=== PATIENT | male | born 1955 | race African-American/Black ===

== ENCOUNTER 2019-02-10 18:45 | Inpatient (IN) | payer OTHER ==
[2019-02-10 20:54] VITALS: BMI 28.5
--- NOTE | 2019-02-10 21:07 | HP ---
CIWA Score Nausea/Vomitin-No Nausea/No Vomiting Muscle Tremors: 1-None Visible, but [place] Anxiety: 4-Mod. Anxious/Guarded Agitation: 4-Moderately Restless Paroxysmal Sweats: 3 Orientation: 3-Disoriented Date>2 days Tacttile Disturbances: 2-Mild Itch/Numbness/Burn Auditory Disturbances: 0-None Visual Disturbances: 2-Mild Sensitivity Headache: 0-None Present CIWA-Ar Total Score: 19 - Admission Criteria [facility]ASAS Guidelines: Admission for Medically Managed Detox: Requires at least one of the followin. CIWA greater than 12 2. Seizures within the past 24 hours 3. Delirium tremens within the past 24 hours 4. Hallucinations within the past 24 hours 5. Acute intervention needed for co occurring medical disorder 6. Acute intervention needed for co occurring psychiatric disorder 7. Severe withdrawal that cannot be handled at a lower level of care (continued vomiting, continued diarrhea, abnormal vital signs) requiring intravenous medication and/or fluids 8. Admission ROS [facility] Chief Complaint: C/O WITHDRAWAL SX'S Allergies/Adverse Reactions: Allergies Allergy/AdvReac Type Severity Reaction Status Date / Time No Known Allergies Allergy Verified 02/10/19 20:24 History of Present Illness: 63 Y.O. MALE WITH ALCOHOLISM AND COCAINE DEPENDENCE HERE FOR DETOX. CLIENT WAS REFERRED BY [facility] AFTER BEING BIBA FOR BLACKING OUT IN THE STREET. HE HAS SINCE BEEN MEDICALLY CLEARED AND DC AFTER A FEW HOURS OF OBSERVATION. NEGATIVE HEAD CT NOTED. CLIENT NOW PRESENTS WITH C/O WITHDRAWAL SXS'. 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 REPORTS DAILY USE OF ALCOHOL. REPORTS LONGEST CLEAN TIME 9 MONTHS. DENIES ANY IN THE PAST YEAR. REPORTS HX/O SEIZURES R/T ALCOHOL WITHDRAWAL. LAST BEING 2 YEARS AGO. HISTORY OF BLACKOUTS LAST BEING LESS THAN 24 HOURS AGO. DENIES SI/HI/AVH. HOMELESS, UNEMPLOYED, DENIES LEGALS. Exam Limitations: No Limitations - Ebola screening Have you traveled outside of the country in the last 21 days: No (N) Have you had contact with anyone from an Ebola affected area: No Do you have a fever: No - Review of Systems Constitutional: Chills, Night Sweats, Changes in sleep EENT: reports: Dental Problems (MISSING TEETH) Respiratory: reports: No Symptoms reported Cardiac: reports: No Symptoms Reported GI: reports: Diarrhea, Poor Fluid Intake : reports: No Symptoms Reported Musculoskeletal: reports: No Symptoms Reported Integumentary: reports: No Symptoms Reported Neuro: reports: Seizure, Dizziness, Other (BLACK OUTS) Endocrine: reports: No Symptoms Reported Hematology: reports: No Symptoms Reported Psychiatric: reports: Agitated (IRRITABLE), Anxious, Depressed (DENIES SI) Other Systems: Reviewed and Negative Patient History - Patient Medical History Hx Anemia: No Hx Asthma: No Hx Chronic Obstructive Pulmonary Disease (COPD): No Hx Cancer: No Hx Cardiac Disorders: Yes (2 CARDIAC STENTS/ ON PLAVIX) Hx Congestive Heart Failure: No Hx Hypertension: Yes Hx Hypercholesterolemia: Yes (NOT COMPLAINT WITH SIMVISTATIN) Hx Pacemaker: No HX Cerebrovascular Accident: No Hx Seizures: Yes (ALCOHOL WITHDRAWAL) Hx Dementia: No Hx Diabetes: No Hx Gastrointestinal Disorders: Yes (HX/O BLEEDING ULCERS) Hx Liver Disease: No Hx Genitourinary Disorders: No Hx Sexually Transmitted Disorders: No Hx Renal Disease (ESRD): No Hx Thyroid Disease: No Hx Human Immunodeficiency Virus (HIV): No Hx Hepatitis C: No Hx Depression: Yes Hx Suicide Attempt: Yes (ONE ATTEMPT 10 YEARS AGO BY SLITTING WRIST) Hx Bipolar Disorder: Yes (SEROQUEL) Hx Schizophrenia: No Other Medical History: DENIES - Patient Surgical History Past Surgical History: Yes Hx Cardiac Surgery: Yes (2 STENTS) Hx Abdominal Surgery: Yes (BLEEDING ULCERS) Anesthesia Reaction: No - PPD History Previous Implant?: Yes Documented Results: Negative w/o proof Implanted On Prior [facility] Admission?: No PPD to be Administered?: Yes - Smoking Cessation Smoking history: Current every day smoker Have you smoked in the past 12 months: Yes Aproximately how many cigarettes per day: 10 Cigars Per Day: 0 Hx Chewing Tobacco Use: No Initiated information on smoking cessation: Yes 'Breaking Loose' booklet given: 02/10/19 - Substance & Tx. History Hx Alcohol Use: Yes Hx Substance Use: Yes Substance Use Type: Alcohol, Cocaine Hx Substance Use Treatment: Yes ([facility]) - Substances abused Alcohol Substance route: Oral Frequency: Daily Amount used: 3 PINTS VODKA Age of first use: 21 Date of last use: 02/09/19 Cocaine Substance route: Smoking Frequency: Daily Amount used: $50 Age of first use: 31 Date of last use: 02/09/19 Family Disease History - Family Disease History Family Disease History: Other: Father (ALCOHOL), Brother (ALCOHOL, SCHIZOPHRENIA ) Admission Physical Exam [facility] - Vital Signs Vital Signs: Vital Signs - 24 hr 02/10/19 20:23 Temperature 98.4 F Pulse Rate 92 H Respiratory 18 Rate Blood Pressure 163/91 - Physical General Appearance: Yes: Mild Distress, Anxious, Other (LIP SMACKING, TEETH GRINDING) HEENTM: Yes: EOMI, Normocephalic, Normal Voice, LEYLA, Pharynx Normal, Other ( POOR DENTITION MISSING TEETH) Respiratory: Yes: Chest Non-Tender, Lungs Clear, Normal Breath Sounds, No Respiratory Distress, No Accessory Muscle Use Neck: Yes: No masses,lesions,Nodules, Supple, Trachea in good position Breast: Yes: Breast Exam Deferred Cardiology: Yes: Regular Rhythm, Regular Rate, S1, S2 Abdominal: Yes: Normal Bowel Sounds, Non Tender, Soft, Surgical Scar Genitourinary: Yes: Within Normal Limits (NO C/O) Back: Yes: Normal Inspection, Other (HEALED ABRASION) Musculoskeletal: Yes: Other (UNSTEADY GAIT) Extremities: Yes: Normal Capillary Refill, Normal Range of Motion, Non-Tender Neurological: Yes: Alert, Motor Strength 5/5, Depressed Affect Integumentary: Yes: Dry, Warm Lymphatic: Yes: Within Normal Limits - Diagnostic (1) Alcohol dependence with uncomplicated withdrawal Current Visit: Yes Status: Acute (2) Cocaine dependence, uncomplicated Current Visit: Yes Status: Acute (3) HTN (hypertension) Current Visit: Yes Status: Chronic Qualifiers: Hypertension type: essential hypertension Qualified Code(s): I10 - Essential (primary) hypertension (4) HLD (hyperlipidemia) Current Visit: Yes Status: Chronic Qualifiers: Hyperlipidemia type: unspecified Qualified Code(s): E78.5 - Hyperlipidemia , unspecified (5) History of heart artery stent Current Visit: Yes Status: Chronic (6) Psychiatric illness Current Visit: Yes Status: Chronic (7) Homeless Current Visit: Yes Status: Suspected (8) Amputation of left index finger Current Visit: Yes Status: Chronic (9) At risk for dehydration due to poor fluid intake Current Visit: Yes Status: Acute (10) Gastric ulcer Current Visit: Yes Status: Chronic Qualifiers: Gastric ulcer chronicity: chronic Comment: HISTORY OF HEMORRAGE Cleared for Admission [facility] - Detox or Rehab [facility] Level of Care: Medically Managed Detox Regimen/Protocol: Librium Claeared for Rehab Admission: No Breathalyzer - Breathalyzer Breathalyzer: 0 Urine Drug Screen - Test Device Lot number: [id number] Expiration date: 11/11/20 - Control Is test valid?: Yes - Results Drug screen NEGATIVE: No Urine drug screen results: PATRICIA-Cocaine Inpatient Rehab Admission - Rehab Decision to Admit Inpatient rehab admission?: No
[2019-02-10] MEDS ORDERED: MELATONIN 5 MG TABLETS PO PRN (21:19)
[2019-02-10] MEDS ORDERED: MAG HYDROX/AL HYDROX/SIMETH 30 ML UNIT-DOSE CUP PO PRN (21:19)
[2019-02-10] MEDS ORDERED: DICYCLOMINE HCL 10 MG CAPSULE PO PRN (21:19)
[2019-02-10] MEDS ORDERED: guaiFENesin 200 MG/10 ML 10 ML UNIT-DOSE CUPS PO PRN (21:19)
[2019-02-10] MEDS ORDERED: ACETAMINOPHEN 325 MG TABLET (FP) PO PRN (21:19)
[2019-02-10] MEDS ORDERED: ONDANSETRON *ODT* 4 MG TABLET SL PRN (21:19)
[2019-02-10] MEDS ORDERED: MAGNESIUM CITRATE 300 ML BOTTLE PO PRN (21:19)
[2019-02-10] MEDS ORDERED: MENTHOL/PHENOL 1 EACH UD MM PRN (21:19)
[2019-02-10] MEDS ORDERED: P-EPHED 60MG/TRIPROLIDI 2.5MG TABLET PO PRN (21:19)
[2019-02-10] MEDS ORDERED: hydrOXYzine PAMOATE 25 MG CAPSULE (FP) PO PRN (21:19)
[2019-02-10] MEDS ORDERED: MAGNESIUM HYDROX 2400MG/30ML ORAL SUSPENSION 30 ML CUP PO PRN (21:19)
[2019-02-10] MEDS ORDERED: BISMUTH SUBSALICYLATE 524 MG/30 ML UD PO PRN (21:19)
[2019-02-10] MEDS ORDERED: METHOCARBAMOL 500 MG TABLET PO PRN (21:19)
[2019-02-10] MEDS ORDERED: chlordiazePOXIDE HCL 25 MG CAPSULE PO PRN (21:19)
[2019-02-10] MEDS ORDERED: NICOTINE POLACRILEX 2 MG GUM BUC PRN (21:19)
[2019-02-10] MEDS: chlordiazePOXIDE HCL 25 MG CAPSULE PO SCH (22:36)
[2019-02-10] MEDS: THIAMINE HCL 100 MG TABLET (FP) PO SCH (22:37)
[2019-02-11] MEDS: chlordiazePOXIDE HCL 25 MG CAPSULE PO SCH ×4 (05:51→22:21)
[2019-02-11] MEDS ORDERED: CLOPIDOGREL BISULFATE 75 MG TABLET (FP) PO SCH (10:00)
[2019-02-11] MEDS ORDERED: PANTOPRAZOLE 40 MG TABLET (FP) PO SCH (10:00)
[2019-02-11 10:03] LABS: HEMATOCRIT 33.7 % (35.4-49); HEMOGLOBIN 11.1 GM/dL (11.7-16.9); MCH 27.7 pg (25.7-33.7); MCHC 32.9 g/dl (32.0-35.9); MEAN CELL VOLUME 84.1 fl (80-96); MEAN PLT VOLUME 7.9 fl (7.5-11.1); PLATELET COUNT 249 K/MM3 (134-434); RBC 4.01 M/mm3 (4.00-5.60); RDW 14.7 % (11.9-15.9); WHITE BLOOD COUNT 4.8 K/mm3 (4.0-10.0)
[2019-02-11 10:15] LABS: ALBUMIN 3.1 g/dl (3.4-5.0); BILIRUBIN,TOTAL 0.3 mg/dL (0.2-1); BLOOD UREA NITROGEN 21.4 mg/dL (7-18); CALCIUM 8.5 mg/dL (8.5-10.1); POTASSIUM 3.8 mmol/L (3.5-5.1); TOT PROT 5.9 g/dl (6.4-8.2)
[2019-02-11] MEDS: NICOTINE 14 MG/24 HOURS TOPICAL PATCH TD SCH (10:40)
[2019-02-11] MEDS: PRENATAL VITAMINS W/ FOLIC ACID TABLET (FP) PO SCH (10:40)
--- NOTE | 2019-02-11 11:53 | EKG ---
Test Reason : Blood Pressure : / mmHG Vent. Rate : 089 BPM Atrial Rate : 089 BPM P-R Int : 156 ms QRS Dur : 080 ms QT Int : 374 ms P-R-T Axes : 063 083 105 degrees QTc Int : 455 ms NORMAL SINUS RHYTHM NONSPECIFIC T WAVE ABNORMALITY ABNORMAL ECG NO PREVIOUS ECGS AVAILABLE Confirmed by LANNY ALEXIS MD ([id number]) on 02/11/2019 11:53:03 AM Referred By: REGINA Confirmed By:LANNY ALEXIS MD
--- NOTE | 2019-02-11 14:16 | CONSULT ---
[facility] Psychiatric Consult - Data Date of interview: 02/11/19 Admission source: [facility] Identifying data: First admission to [facility] for this 63 y/o AA male self- referred for detoxification (alcohol, cocaine/crack). Interviewed at [address] [place] [address]. 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 Substance Abuse History: Confirmed by patient. Details in current [facility] report as follows : Smoking history: Current every day smoker. Have you smoked in the past 12 months: Yes. Aproximately how many cigarettes per day: 10. Cigars Per Day: 0. Hx Chewing Tobacco Use: No. Initiated information on smoking cessation : Yes. 'Breaking Loose' booklet given: 02/10/19. - Substance & Tx. History. Hx Alcohol Use: Yes. Hx Substance Use: Yes. Substance Use Type: Alcohol, Cocaine. Hx Substance Use Treatment: Yes ([facility]). - Substances abused. Alcohol. Substance route: Oral. Frequency: Daily. Amount used: 3 PINTS VODKA. Age of first use: 21. Date of last use: 02/09/19. Cocaine. Substance route: Smoking. Frequency: Daily. Amount used: $50. Age of first use: 31. Date of last use: 02/09/19 Medical History: Remarkable for hypertension, dyslipidemia, peptic ulcer disease , recent occurrence of withdrawal-related seizures and angioplasty four months ago (placement of two stents). Psychiatric History: Onset on psychiatric disturbances in the s ( hallucinations, persecutory delusions, degradation of general functioning). Patient was admitted to [facility] in [facility]. He also endorses admissions to [facility] and [facility]. Reportedly diagnosed with Bipolar Disorder. Managed on a regimen of sertraline + quetiapine. Mr Titus indicates that he sees a psychiatrist at a clinic in [facility]. Reports history of one suicide attempt via wrist-cutting (10 years ago). Physical/Sexual Abuse/Trauma History: Patient denies. Additional Comment: Urine drug screen results: PATRICIA-Cocaine. Noted. Mental Status Exam - Mental Status Exam Alert and Oriented to: Time, Place, Person Cognitive Function: Good Patient Appearance: Unkempt, Disheveled Mood: Nervous, Withdrawn Affect: Mood Congruent, Constricted Patient Behavior: Fatigued, Talkative, Appropriate, Cooperative Speech Pattern: Clear, Appropriate Voice Loudness: Normal Thought Process: Intact, Goal Oriented Thought Disorder: Not Present Hallucinations: Denies Suicidal Ideation: Denies Homicidal Ideation: Denies Insight/Judgement: Poor Sleep: Well Appetite: Good Muscle strength/Tone: Normal Gait/Station: Normal Psychiatric Findings - Problem List ([place] 1, 2,3) (1) Alcohol dependence with uncomplicated withdrawal Current Visit: Yes Status: Acute (2) Cocaine dependence, uncomplicated Current Visit: Yes Status: Chronic (3) Nicotine dependence Current Visit: Yes Status: Chronic (4) Substance induced mood disorder Current Visit: Yes Status: Chronic (5) History of depression Current Visit: Yes Status: Chronic (6) Schizoaffective disorder Current Visit: Yes Status: Suspected (7) Non-compliance Current Visit: Yes Status: Chronic - Initial Treatment Plan Initial Treatment Plan: Psychoeducation. Sleep hygiene. Detoxification. Support. Relapse prevention (MAT) discussed with patient. AA meetings. Contact made, via telephone ([phone]), with pharmacist at [id number] : confirmed refills for sertraline 50 mg/day + seroquel 100 mg/hs (not picked up since September 2018). Resumed : seroquel 50 mg po hs + zoloft 50 mg po daily. Side effects/benefits of both drugs are discussed with the patient. Mr Titus is in agreement with this plan of care. Verbal consent given to MD. Jane.
--- NOTE | 2019-02-11 14:26 | PN ---
S CIWA - CIWA Score Nausea/Vomitin Muscle Tremors: 2 Anxiety: 2 Agitation: 2 Paroxysmal Sweats: No Perspiration Orientation: 0-Oriented Tacttile Disturbances: 1-Very Mild Itch/Numbness Auditory Disturbances: 0-None Visual Disturbances: 0-None Headache: 2-Mild CIWA-Ar Total Score: 11 S Progress Note (SOAP) Subjective: alert,irritable,anxious,interrupted sleep,pain in the body Objective: 02/11/19 14:24 Vital Signs Temperature 99.1 F 02/11/19 14:00 Pulse Rate 89 02/11/19 14:00 Respiratory Rate 18 02/11/19 14:00 Blood Pressure 136/82 02/11/19 14:00 O2 Sat by Pulse Oximetry (%) 02/11/19 14:25 Laboratory Last Values WBC 4.8 K/mm3 (4.0-10.0) 02/11/19 07:30 RBC 4.01 M/mm3 (4.00-5.60) 02/11/19 07:30 Hgb 11.1 GM/dL (11.7-16.9) L 02/11/19 07:30 Hct 33.7 % (35.4-49) L 02/11/19 07:30 MCV 84.1 fl (80-96) 02/11/19 07:30 MCH 27.7 pg (25.7-33.7) 02/11/19 07:30 MCHC 32.9 g/dl (32.0-35.9) 02/11/19 07:30 RDW 14.7 % (11.9-15.9) 02/11/19 07:30 Plt Count 249 K/MM3 (134-434) 02/11/19 07:30 MPV 7.9 fl (7.5-11.1) 02/11/19 07:30 Sodium 143 mmol/L (136-145) 02/11/19 07:30 Potassium 3.8 mmol/L (3.5-5.1) 02/11/19 07:30 Chloride 105 mmol/L (98-107) 02/11/19 07:30 Carbon Dioxide 32 mmol/L (21-32) 02/11/19 07:30 Anion Gap 6 MMOL/L (8-16) L 02/11/19 07:30 BUN 21.4 mg/dL (7-18) H 02/11/19 07:30 Creatinine 1.0 mg/dL (0.55-1.3) 02/11/19 07:30 Est GFR (CKD-EPI)AfAm 93.08 02/11/19 07:30 Est GFR (CKD-EPI)NonAf 80.31 02/11/19 07:30 Random Glucose 97 mg/dL (74-106) 02/11/19 07:30 Calcium 8.5 mg/dL (8.5-10.1) 02/11/19 07:30 Total Bilirubin 0.3 mg/dL (0.2-1) 02/11/19 07:30 AST 69 U/L (15-37) H 02/11/19 07:30 ALT 63 U/L (13-61) H 02/11/19 07:30 Alkaline Phosphatase 94 U/L (45-117) 02/11/19 07:30 Total Protein 5.9 g/dl (6.4-8.2) L 02/11/19 07:30 Albumin 3.1 g/dl (3.4-5.0) L 02/11/19 07:30 RPR Titer Nonreactive (NONREACTIVE) 02/11/19 07:30 Assessment: 02/11/19 14:25 withdrawal symptom Plan: continue detox librium regimen
[2019-02-11] MEDS: ASPIRIN COATED 81 MG TABLET.EC PO SCH (15:57)
[2019-02-11] MEDS: RANITIDINE HCL 150 MG TABLET (FP) PO SCH (22:21)
[2019-02-11] MEDS: THIAMINE HCL 100 MG TABLET (FP) PO SCH (22:21)
[2019-02-11] MEDS: QUEtiapine FUMARATE 50 MG TABLET PO SCH (22:21)
[2019-02-12] MEDS: chlordiazePOXIDE HCL 25 MG CAPSULE PO SCH ×4 (05:44→22:10)
[2019-02-12] MEDS: CLOPIDOGREL BISULFATE 75 MG TABLET (FP) PO SCH (06:09)
[2019-02-12] MEDS: ASPIRIN COATED 81 MG TABLET.EC PO SCH (10:23)
[2019-02-12] MEDS: PRENATAL VITAMINS W/ FOLIC ACID TABLET (FP) PO SCH (10:23)
[2019-02-12] MEDS: RANITIDINE HCL 150 MG TABLET (FP) PO SCH ×2 (10:23→22:10)
[2019-02-12] MEDS: SERTRALINE HCL 50 MG TABLET (FP) PO SCH (10:23)
[2019-02-12] MEDS: NICOTINE 14 MG/24 HOURS TOPICAL PATCH TD SCH (10:25)
--- NOTE | 2019-02-12 11:36 | PN ---
S CIWA - CIWA Score Nausea/Vomitin-No Nausea/No Vomiting Muscle Tremors: 2 Anxiety: 4-Mod. Anxious/Guarded Agitation: 3 Paroxysmal Sweats: 3 Orientation: 0-Oriented Tacttile Disturbances: 0-None Auditory Disturbances: 0-None Visual Disturbances: 0-None Headache: 0-None Present CIWA-Ar Total Score: 12 [facility] Progress Note (SOAP) Subjective: Pt c/o anxiety,sweats,runny nose. Denies cough. Reports detox proceeding well. Pt reports he is on hypertensive meds but forgot name. This financial underwriter called the pt 's home [facility] pharmacist and spoke to Ms Garner [facility] who verified that pt is on Amlodipine 10 mg po daily, Aspirin 81 mg po daily,Clopidogrel 75 mg po daily and Atorvastatin 20 mg po daily(states its new addition and spoke to pt who states he does not want to start it here). Objective: 02/12/19 12:02 Vital Signs - 24 hr 02/11/19 02/11/19 02/11/19 14:00 17:53 21:37 Temperature 99.1 F 98 F 98.9 F Pulse Rate 89 90 91 H Respiratory 18 18 16 Rate Blood Pressure 136/82 136/71 156/82 02/12/19 02/12/19 02/12/19 00:30 03:30 06:11 Temperature 97 F L Pulse Rate 78 Respiratory 18 18 18 Rate Blood Pressure 148/83 02/12/19 09:16 Temperature 99.2 F Pulse Rate 88 Respiratory 18 Rate Blood Pressure 147/78 Laboratory Tests 02/11/19 02/11/19 02/11/19 07:30 07:30 07:30 WBC 4.8 RBC 4.01 Hgb 11.1 L Hct 33.7 L MCV 84.1 MCH 27.7 MCHC 32.9 RDW 14.7 Plt Count 249 MPV 7.9 Sodium 143 Potassium 3.8 Chloride 105 Carbon Dioxide 32 Anion Gap 6 L BUN 21.4 H Creatinine 1.0 Est GFR (CKD-EPI)AfAm 93.08 Est GFR (CKD-EPI)NonAf 80.31 Random Glucose 97 Calcium 8.5 Total Bilirubin 0.3 AST 69 H ALT 63 H Alkaline Phosphatase 94 Total Protein 5.9 L Albumin 3.1 L RPR Titer Nonreactive Assessment: 02/12/19 12:02 withdrawal sx Hx HTN HLD Plan: continue detox with librium taper reorder Amlodipine 10 mg po daily Actifed for nasal sx prn. increase po fluids as tolerated. Follow up with primary care after discharge.
[2019-02-12] MEDS: amLODIPine BESYLATE 10 MG TABLET (FP) PO SCH (12:29)
[2019-02-12] MEDS: QUEtiapine FUMARATE 50 MG TABLET PO SCH (22:10)
[2019-02-12] MEDS: THIAMINE HCL 100 MG TABLET (FP) PO SCH (22:10)
[2019-02-13] MEDS ORDERED: chlordiazePOXIDE HCL 10 MG CAPSULE PO PRN
[2019-02-13] MEDS: chlordiazePOXIDE HCL 10 MG CAPSULE PO SCH ×4 (05:34→22:42)
[2019-02-13] MEDS: ACETAMINOPHEN 325 MG TABLET (FP) PO PRN ×3 (05:34→22:43)
[2019-02-13] MEDS: CLOPIDOGREL BISULFATE 75 MG TABLET (FP) PO SCH (06:30)
--- NOTE | 2019-02-13 09:16 | PN ---
S CIWA - CIWA Score Nausea/Vomitin-Mild Nausea/No Vomiting Muscle Tremors: 2 Anxiety: 2 Agitation: 2 Paroxysmal Sweats: 1-Minimal Palms Moist Orientation: 0-Oriented Tacttile Disturbances: 0-None Auditory Disturbances: 0-None Visual Disturbances: 0-None Headache: 0-None Present CIWA-Ar Total Score: 8 S Progress Note (SOAP) Subjective: 63 years old male first patient [facility] admission was admitted on for acute alcohol withdrawal sx management doing well with libirum detox regimen resting on bed "better than yesterday" medical condition of hypertension and gerd and insomnia hypertension treated with amlodipine additional lisinopril zantac for gerd insomnia and depression treated with seroquel and zoloft Objective: 02/13/19 09:22 Vital Signs Temperature 98.4 F 02/13/19 07:17 Pulse Rate 88 02/13/19 07:17 Respiratory Rate 18 02/13/19 07:17 Blood Pressure 141/81 02/13/19 06:30 O2 Sat by Pulse Oximetry (%) Laboratory Last Values WBC 4.8 K/mm3 (4.0-10.0) 02/11/19 07:30 RBC 4.01 M/mm3 (4.00-5.60) 02/11/19 07:30 Hgb 11.1 GM/dL (11.7-16.9) L 02/11/19 07:30 Hct 33.7 % (35.4-49) L 02/11/19 07:30 MCV 84.1 fl (80-96) 02/11/19 07:30 MCH 27.7 pg (25.7-33.7) 02/11/19 07:30 MCHC 32.9 g/dl (32.0-35.9) 02/11/19 07:30 RDW 14.7 % (11.9-15.9) 02/11/19 07:30 Plt Count 249 K/MM3 (134-434) 02/11/19 07:30 MPV 7.9 fl (7.5-11.1) 02/11/19 07:30 Sodium 143 mmol/L (136-145) 02/11/19 07:30 Potassium 3.8 mmol/L (3.5-5.1) 02/11/19 07:30 Chloride 105 mmol/L (98-107) 02/11/19 07:30 Carbon Dioxide 32 mmol/L (21-32) 02/11/19 07:30 Anion Gap 6 MMOL/L (8-16) L 02/11/19 07:30 BUN 21.4 mg/dL (7-18) H 02/11/19 07:30 Creatinine 1.0 mg/dL (0.55-1.3) 02/11/19 07:30 Est GFR (CKD-EPI)AfAm 93.08 02/11/19 07:30 Est GFR (CKD-EPI)NonAf 80.31 02/11/19 07:30 Random Glucose 97 mg/dL (74-106) 02/11/19 07:30 Calcium 8.5 mg/dL (8.5-10.1) 02/11/19 07:30 Total Bilirubin 0.3 mg/dL (0.2-1) 02/11/19 07:30 AST 69 U/L (15-37) H 02/11/19 07:30 ALT 63 U/L (13-61) H 02/11/19 07:30 Alkaline Phosphatase 94 U/L (45-117) 02/11/19 07:30 Total Protein 5.9 g/dl (6.4-8.2) L 02/11/19 07:30 Albumin 3.1 g/dl (3.4-5.0) L 02/11/19 07:30 RPR Titer Nonreactive (NONREACTIVE) 02/11/19 07:30 lab noted increase oral fluid Assessment: 02/13/19 09:23 alcohol withdrawal sx alert speech clearly limited conversation with staff Plan: continue libirum detox regimen
[2019-02-13] MEDS: ASPIRIN COATED 81 MG TABLET.EC PO SCH (10:19)
[2019-02-13] MEDS: SERTRALINE HCL 50 MG TABLET (FP) PO SCH (10:19)
[2019-02-13] MEDS: amLODIPine BESYLATE 10 MG TABLET (FP) PO SCH (10:19)
[2019-02-13] MEDS: RANITIDINE HCL 150 MG TABLET (FP) PO SCH ×2 (10:19→22:42)
[2019-02-13] MEDS: PRENATAL VITAMINS W/ FOLIC ACID TABLET (FP) PO SCH (10:19)
[2019-02-13] MEDS: LISINOPRIL 5 MG TABLET (FP) PO SCH (10:20)
[2019-02-13] MEDS: NICOTINE 14 MG/24 HOURS TOPICAL PATCH TD SCH (10:39)
[2019-02-13] MEDS ORDERED: ONDANSETRON 8 MG TABLET (FP) PO ONE (13:00)
[2019-02-13] MEDS: AMOXICILLIN 500 MG CAPSULE (FP) PO SCH ×2 (15:16→22:42)
--- NOTE | 2019-02-13 19:00 | PN ---
Shelly Progress Note Note: patient running temperature Vital Signs Temperature 101.5 F H 02/13/19 17:28 Pulse Rate 122 H 02/13/19 17:28 Respiratory Rate 18 02/13/19 17:28 Blood Pressure 169/86 02/13/19 13:41 O2 Sat by Pulse Oximetry (%) complained of sore throat pharynx injected cervical lymph gland with tenderness no stiff neck pain on swallowing lung no wheezing abdomen soft,no distension,n tenderness no calf tenderness alert,no difficulty in breathing impression upper respiratory infection pharyngitis treatment continue amoxicillin 500 mgs q 8hrs for 7 days hydration close monitoring
[2019-02-13 22:41] LABS: URINE APPEARANCE CLEAR; URINE BILIRUBIN NEGATIVE (NEGATIVE); URINE COLOR YELLOW; URINE GLUCOSE (UA) NEGATIVE (NEGATIVE); URINE KETONE NEGATIVE (NEGATIVE); URINE LEUK ESTERASE NEGATIVE (NEGATIVE); URINE NITRITE NEGATIVE (NEGATIVE); URINE PROTEIN NEGATIVE (NEGATIVE); URINE UROBILINOGEN 0.2 mg/dL (0.2-1.0)
[2019-02-13] MEDS: THIAMINE HCL 100 MG TABLET (FP) PO SCH (22:42)
[2019-02-13] MEDS: QUEtiapine FUMARATE 50 MG TABLET PO SCH (22:42)
[2019-02-14] MEDS: AMOXICILLIN 500 MG CAPSULE (FP) PO SCH ×3 (06:17→21:38)
[2019-02-14] MEDS: CLOPIDOGREL BISULFATE 75 MG TABLET (FP) PO SCH (06:18)
[2019-02-14] MEDS: chlordiazePOXIDE HCL 10 MG CAPSULE PO SCH ×2 (06:18→16:54)
--- NOTE | 2019-02-14 08:45 | PN ---
[facility] CIWA - CIWA Score Nausea/Vomitin-No Nausea/No Vomiting Muscle Tremors: 2 Anxiety: 1-Mildly Anxious Agitation: 1-Slight > Activity Paroxysmal Sweats: No Perspiration Orientation: 0-Oriented Tacttile Disturbances: 0-None Auditory Disturbances: 0-None Visual Disturbances: 0-None Headache: 0-None Present CIWA-Ar Total Score: 4 S Progress Note (SOAP) Subjective: doing well with labrum detox regimen non nausea no vomiting today tolerate food and fluid well tempt 96.9 feeling better resting on bed comfortably no nausea no vomiting today but sore throat continue amoxicillin 500 mg po tid x 7 days hypertension x 40 years cardiac stents 2006 at [facility] and 09/2018 at [facility] longest sobriety 8 months due to AA meeting for support "I need to stop otherwise pace maker or defibrillator next" Objective: 02/14/19 08:51 Vital Signs Temperature 96.9 F L 02/14/19 07:20 Pulse Rate 110 H 02/14/19 07:20 Respiratory Rate 18 02/14/19 07:20 Blood Pressure 151/92 02/14/19 07:20 O2 Sat by Pulse Oximetry (%) Laboratory Last Values WBC 4.8 K/mm3 (4.0-10.0) 02/11/19 07:30 RBC 4.01 M/mm3 (4.00-5.60) 02/11/19 07:30 Hgb 11.1 GM/dL (11.7-16.9) L 02/11/19 07:30 Hct 33.7 % (35.4-49) L 02/11/19 07:30 MCV 84.1 fl (80-96) 02/11/19 07:30 MCH 27.7 pg (25.7-33.7) 02/11/19 07:30 MCHC 32.9 g/dl (32.0-35.9) 02/11/19 07:30 RDW 14.7 % (11.9-15.9) 02/11/19 07:30 Plt Count 249 K/MM3 (134-434) 02/11/19 07:30 MPV 7.9 fl (7.5-11.1) 02/11/19 07:30 Sodium 143 mmol/L (136-145) 02/11/19 07:30 Potassium 3.8 mmol/L (3.5-5.1) 02/11/19 07:30 Chloride 105 mmol/L (98-107) 02/11/19 07:30 Carbon Dioxide 32 mmol/L (21-32) 02/11/19 07:30 Anion Gap 6 MMOL/L (8-16) L 02/11/19 07:30 BUN 21.4 mg/dL (7-18) H 02/11/19 07:30 Creatinine 1.0 mg/dL (0.55-1.3) 02/11/19 07:30 Est GFR (CKD-EPI)AfAm 93.08 02/11/19 07:30 Est GFR (CKD-EPI)NonAf 80.31 02/11/19 07:30 Random Glucose 97 mg/dL (74-106) 02/11/19 07:30 Calcium 8.5 mg/dL (8.5-10.1) 02/11/19 07:30 Total Bilirubin 0.3 mg/dL (0.2-1) 02/11/19 07:30 AST 69 U/L (15-37) H 02/11/19 07:30 ALT 63 U/L (13-61) H 02/11/19 07:30 Alkaline Phosphatase 94 U/L (45-117) 02/11/19 07:30 Total Protein 5.9 g/dl (6.4-8.2) L 02/11/19 07:30 Albumin 3.1 g/dl (3.4-5.0) L 02/11/19 07:30 Urine Color Yellow 02/13/19 20:18 Urine Appearance Clear 02/13/19 20:18 Urine pH 6.0 (5.0-8.0) 02/13/19 20:18 Ur Specific [place] 1.025 (1.010-1.035) 02/13/19 20:18 Urine Protein Negative (NEGATIVE) 02/13/19 20:18 Urine Glucose (UA) Negative (NEGATIVE) 02/13/19 20:18 Urine Ketones Negative (NEGATIVE) 02/13/19 20:18 Urine Blood Negative (NEGATIVE) 02/13/19 20:18 Urine Nitrite Negative (NEGATIVE) 02/13/19 20:18 Urine Bilirubin Negative (NEGATIVE) 02/13/19 20:18 Urine Urobilinogen 0.2 mg/dL (0.2-1.0) 02/13/19 20:18 Ur Leukocyte Esterase Negative (NEGATIVE) 02/13/19 20:18 RPR Titer Nonreactive (NONREACTIVE) 02/11/19 07:30 lab noted patient has scheduled with chief dispatcher upon discharged from detox for antihypertensive medication adjustment currently amlodipine and lisinopril patient tolerated well denies dizziness no chest pain no shortness of breath Assessment: 02/14/19 08:53 alcohol withdrawal sx alert oriented x 3 speech clearly goal directed cohesive cognition Plan: continue libirum detox regimen
[2019-02-14] MEDS: NICOTINE 14 MG/24 HOURS TOPICAL PATCH TD SCH (10:14)
[2019-02-14] MEDS: PRENATAL VITAMINS W/ FOLIC ACID TABLET (FP) PO SCH (10:14)
[2019-02-14] MEDS: LISINOPRIL 5 MG TABLET (FP) PO SCH (10:14)
[2019-02-14] MEDS: SERTRALINE HCL 50 MG TABLET (FP) PO SCH (10:14)
[2019-02-14] MEDS: amLODIPine BESYLATE 10 MG TABLET (FP) PO SCH (10:14)
[2019-02-14] MEDS: RANITIDINE HCL 150 MG TABLET (FP) PO SCH ×2 (10:14→21:38)
[2019-02-14] MEDS: ASPIRIN COATED 81 MG TABLET.EC PO SCH (10:15)
[2019-02-14] MEDS: QUEtiapine FUMARATE 50 MG TABLET PO SCH (21:37)
[2019-02-14] MEDS: THIAMINE HCL 100 MG TABLET (FP) PO SCH (21:37)
[2019-02-15] MEDS ORDERED: chlordiazePOXIDE HCL 10 MG CAPSULE PO ONE (05:00)
[2019-02-15] MEDS: AMOXICILLIN 500 MG CAPSULE (FP) PO SCH (05:23)
[2019-02-15] MEDS: CLOPIDOGREL BISULFATE 75 MG TABLET (FP) PO SCH (06:16)
[2019-02-15 06:18] VITALS: BP 124/86; PULSE 93; TEMP 97.3
--- NOTE | 2019-02-15 09:19 | DS ---
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 upon return to [facility] patient agrees to bring in medication list and lab report for follow up seen by psychiatrist vanessa risperidal and seroquel no adverse reaction noted aftercare community support approach agrees to return to home group for support Pertinent Past History: hypertension huperlipidemia cardiocoronary disease gerd alcohol induced mood disorder - Physical Exam Results Vital Signs: Vital Signs Temperature 97.3 F L 02/15/19 06:18 Pulse Rate 93 H 02/15/19 06:18 Respiratory Rate 18 02/15/19 06:18 Blood Pressure 124/86 02/15/19 06:18 O2 Sat by Pulse Oximetry (%) Pertinent Admission Physical Exam Findings: alcohol withdrawal sx Laboratory Last Values WBC 4.8 K/mm3 (4.0-10.0) 02/11/19 07:30 RBC 4.01 M/mm3 (4.00-5.60) 02/11/19 07:30 Hgb 11.1 GM/dL (11.7-16.9) L 02/11/19 07:30 Hct 33.7 % (35.4-49) L 02/11/19 07:30 MCV 84.1 fl (80-96) 02/11/19 07:30 MCH 27.7 pg (25.7-33.7) 02/11/19 07:30 MCHC 32.9 g/dl (32.0-35.9) 02/11/19 07:30 RDW 14.7 % (11.9-15.9) 02/11/19 07:30 Plt Count 249 K/MM3 (134-434) 02/11/19 07:30 MPV 7.9 fl (7.5-11.1) 02/11/19 07:30 Sodium 143 mmol/L (136-145) 02/11/19 07:30 Potassium 3.8 mmol/L (3.5-5.1) 02/11/19 07:30 Chloride 105 mmol/L (98-107) 02/11/19 07:30 Carbon Dioxide 32 mmol/L (21-32) 02/11/19 07:30 Anion Gap 6 MMOL/L (8-16) L 02/11/19 07:30 BUN 21.4 mg/dL (7-18) H 02/11/19 07:30 Creatinine 1.0 mg/dL (0.55-1.3) 02/11/19 07:30 Est GFR (CKD-EPI)AfAm 93.08 02/11/19 07:30 Est GFR (CKD-EPI)NonAf 80.31 02/11/19 07:30 Random Glucose 97 mg/dL (74-106) 02/11/19 07:30 Calcium 8.5 mg/dL (8.5-10.1) 02/11/19 07:30 Total Bilirubin 0.3 mg/dL (0.2-1) 02/11/19 07:30 AST 69 U/L (15-37) H 02/11/19 07:30 ALT 63 U/L (13-61) H 02/11/19 07:30 Alkaline Phosphatase 94 U/L (45-117) 02/11/19 07:30 Total Protein 5.9 g/dl (6.4-8.2) L 02/11/19 07:30 Albumin 3.1 g/dl (3.4-5.0) L 02/11/19 07:30 Urine Color Yellow 02/13/19 20:18 Urine Appearance Clear 02/13/19 20:18 Urine pH 6.0 (5.0-8.0) 02/13/19 20:18 Ur Specific [place] 1.025 (1.010-1.035) 02/13/19 20:18 Urine Protein Negative (NEGATIVE) 02/13/19 20:18 Urine Glucose (UA) Negative (NEGATIVE) 02/13/19 20:18 Urine Ketones Negative (NEGATIVE) 02/13/19 20:18 Urine Blood Negative (NEGATIVE) 02/13/19 20:18 Urine Nitrite Negative (NEGATIVE) 02/13/19 20:18 Urine Bilirubin Negative (NEGATIVE) 02/13/19 20:18 Urine Urobilinogen 0.2 mg/dL (0.2-1.0) 02/13/19 20:18 Ur Leukocyte Esterase Negative (NEGATIVE) 02/13/19 20:18 RPR Titer Nonreactive (NONREACTIVE) 02/11/19 07:30 lab noted alert oriented x 3 cardiac S1S2 regular rate rhythm, denies dizziness no headaches respiratory clear lung sound bilaterally on auscultation, breath ease and even abdomen: soft non rebound tenderness extremities: skin warm and dry, full range of motion, no joints swelling or redness - Treatment Hospital Course: Detox Protocol Followed, Detoxed Safely, Responded well, Discharged Condition Good, Rehab Referral Accepted Patient has Accepted a Rehab Referral to: community support approach - Medication Discharge Medications: Ambulatory Orders Aspirin Coated [Ecotrin -] 81 mg PO DAILY 02/10/19 Famotidine [Pepcid] 40 mg PO DAILY 02/10/19 Quetiapine Fumarate [Seroquel] 100 mg PO HS 02/10/19 Risperidone 1 mg PO DAILY 02/10/19 Sertraline HCl 50 mg PO DAILY 02/10/19 Amlodipine Besylate [Norvasc -] 10 mg PO DAILY #30 tablet 02/14/19 Clopidogrel Bisulfate [Clopidogrel] 75 mg PO DAILY #30 tablet 02/14/19 Lisinopril [Prinivil] 5 mg PO DAILY #30 tablet 02/14/19 - Diagnosis (1) Alcohol dependence with uncomplicated withdrawal Current Visit: Yes Status: Acute (2) HTN (hypertension) Current Visit: Yes Status: Chronic Qualifiers: Hypertension type: essential hypertension Qualified Code(s): I10 - Essential (primary) hypertension (3) HLD (hyperlipidemia) Current Visit: Yes Status: Chronic Qualifiers: Hyperlipidemia type: unspecified Qualified Code(s): E78.5 - Hyperlipidemia , unspecified (4) Nicotine dependence Current Visit: Yes Status: Acute Qualifiers: Nicotine product type: cigarettes Substance use status: in withdrawal Qualified Code(s): F17.213 - Nicotine dependence, cigarettes, with withdrawal (5) Substance induced mood disorder Current Visit: Yes Status: Suspected - AMA Did Patient Leave Against Medical Advice: No CIWA Score - CIWA Score Nausea/Vomitin-No Nausea/No Vomiting Muscle Tremors: 1-None Visible, but [place] Anxiety: 1-Mildly Anxious Agitation: 0-Normal Activity Paroxysmal Sweats: No Perspiration Orientation: 0-Oriented Tacttile Disturbances: 0-None Auditory Disturbances: 0-None Visual Disturbances: 0-None Headache: 0-None Present CIWA-Ar Total Score: 2
== END 2019-02-15 08:45 | disposition home or self-care (01) | DRG 774 ==
LOC: YASAS 18:45 → Y3N 21:29
PROVIDERS: ADMIT Surgery; ATTEND Surgery
PROC: HZ2ZZZZ Detoxification Services for Substance Abuse Treatment (ICD-10-PCS; principal; 2019-02-10)
DX: F10.230 Alcohol dependence with withdrawal, uncomplicated (principal); F14.20 Cocaine dependence, uncomplicated; F17.210 Nicotine dependence, cigarettes, uncomplicated; F31.9 Bipolar disorder, unspecified; F19.24 Other psychoactive substance dependence with psychoactive substance-induced mood disorder; F25.9 Schizoaffective disorder, unspecified; I25.10 Atherosclerotic heart disease of native coronary artery without angina pectoris; I10 Essential (primary) hypertension; Z95.5 Presence of coronary angioplasty implant and graft; E78.00 Pure hypercholesterolemia, unspecified; K21.9 Gastro-esophageal reflux disease without esophagitis; E78.5 Hyperlipidemia, unspecified; J20.9 Acute bronchitis, unspecified; K25.9 Gastric ulcer, unspecified as acute or chronic, without hemorrhage or perforation; Z89.022 Acquired absence of left finger(s); Z91.89 Other specified personal risk factors, not elsewhere classified; Z91.5 Personal history of self-harm; Z59.0 Homelessness
CPT/HCPCS: 36415; 80053; 81003; 85027; 86593; 93005; 93010; Q0162